=== PATIENT | male | born 1955 | race Caucasian/White ===

== ENCOUNTER 2016-09-25 17:37 | Emergency (ER) | payer BC ==
[2016-09-25 18:12] VITALS: BP 147/84
[2016-09-25] MEDS ORDERED: Acetaminophen TAB* 325 MG PO ONE (18:57)
[2016-09-25] MEDS ORDERED: DOXYcycline CAP(*) 100 MG PO ONE ×2 (19:03→19:06)
--- NOTE | 2016-09-25 19:04 | UC ---
Skin Complaint HPI - HPI Summary HPI Summary: removed a tick from his left lower leg yesterday unsure how long in was attached for, has chills body aches, headache and nausea beginning today - History of Current Complaint Chief Complaint: UCBiteInjury Time Seen by Provider: 09/25/16 18:56 Stated Complaint: TICK BITE Hx Obtained From: Patient Onset/Duration: Sudden Onset, Lasting Days - 1, Still Present Skin Exposure Onset/Duration: Days Ago - 1 Timing: Constant Onset Severity: Mild Current Severity: Moderate Pain Intensity: 6 Pain Scale Used: 0-10 Numeric Location: Diffuse - body aches, Discrete - tick bite on left lower leg Aggravating: Nothing Alleviating: Nothing Associated Signs & Symptoms: Positive: Negative Related History: Insect Bite/Sting - Allergy/Home Medications Allergies/Adverse Reactions: Allergies Allergy/AdvReac Type Severity Reaction Status Date / Time Bee Venom Allergy Anaphylatic Verified 09/25/16 18:08 Shock Home Medications: Home Medications Atorvastatin* [Lipitor 20 MG*] 20 mg PO 1700 09/25/16 [History Confirmed ] Dipyridamole/Aspirin 25/200* [Aggrenox 25/200*] 1 cap.er PO BID 09/25/16 [ History Confirmed 09/25/16] Levothyroxine TAB* [Synthroid 150 MCG TAB*] 200 mcg PO DAILY 09/25/16 [History Confirmed 09/25/16] Review of Systems Constitutional: Chills, Fatigue Skin: Negative Eyes: Negative ENT: Negative Respiratory: Negative Cardiovascular: Negative Gastrointestinal: Negative Genitourinary: Negative Motor: Negative Neurovascular: Negative Musculoskeletal: Arthralgia, Myalgia Neurological: Negative Psychological: Anxious All Other Systems Reviewed And Are Negative: Yes PMH/Surg Hx/FS Hx/Imm Hx Previously Healthy: No - lyme Endocrine History Of: Reports: Thyroid Disease Cardiovascular History Of: Reports: Cardiac Disorders - heart cath 2016 Neurological History Of: Reports: CVA - Surgical History Surgical History: Yes Surgery Procedure, Year, and Place: right shoulder sx 2016 - Family History Known Family History: Positive: None Family History: no cardio vascular isssues reported in family lineage - Social History Occupation: Retired - staff weapons officer Lives: Alone Alcohol Use: Occasionally Substance Use Type: None Smoking Status (MU): Heavy Every Day Tobacco Smoker Type: Cigarettes Amount Used/How Often: 1/2ppd Physical Exam Triage Information Reviewed: Yes Appearance: Well-Appearing, No Pain Distress, Well-Nourished Vital Signs: Initial Vital Signs Temp 98.5 F 09/25/16 18:00 Pulse 86 09/25/16 18:00 Resp 16 09/25/16 18:00 BP 147/84 09/25/16 18:00 Pulse Ox 97 09/25/16 18:00 Vital Signs Reviewed: Yes Eye Exam: Normal Eyes: Positive: Conjunctiva Clear ENT Exam: Normal ENT: Positive: Normal ENT inspection, Hearing grossly normal, TMs normal, Other : - viral ulcerations on soft palate. Negative: Nasal congestion, Nasal drainage, Tonsillar swelling, Tonsillar exudate, Trismus, Muffled/hoarse voice Dental Exam: Normal Neck exam: Normal Neck: Positive: Supple, Nontender, No Lymphadenopathy Respiratory Exam: Normal Respiratory: Positive: Chest non-tender, Lungs clear, Normal breath sounds, No respiratory distress, No accessory muscle use Cardiovascular Exam: Normal Cardiovascular: Positive: RRR, No Murmur, Pulses Normal, Brisk Capillary Refill Musculoskeletal Exam: Normal Musculoskeletal: Positive: Strength Intact, ROM Intact, No Edema Neurological Exam: Normal Neurological: Positive: Alert, Muscle Tone Normal Psychological Exam: Normal Skin Exam: Other Skin: Positive: Other - small redness at tick site Course/Dx - Course Course Of Treatment: Dox times one dose now--labs, follow with pcp as planned this week, magic mouth wash should lesions in mouth become painful - Differential Diagnoses - Skin Complaint Differential Diagnoses: Cellulitis, Contact Dermatitis, Tick Born Illness, Viral Exanthem - Diagnoses Provider Diagnoses: Viral Stomatitis, Tick Exposure with Lyme PEP Discharge - Discharge Plan Condition: Stable Disposition: HOME Prescriptions: Magic Mouth Was-LUKE/MAAL/LIDO* 5 ml SWISH SPIT QID #240 ml Patient Education Materials: Tick Bite (ED), DASH Eating Plan (ED), Hypertension (ED), Gingivostomatitis (ED) Referrals: Hardik Cartagena NP [Primary Care Provider] - 09/26/16
[2016-09-26 10:46] LABS: Hematocrit 43 % (42-52); Mean Corpuscular HGB Conc 33 g/dl (31-36); Mean Corpuscular Hemoglobin 31 pg (27-31); Mean Corpuscular Volume 95 fL (80-94); Mean Platelet Volume 9 um3 (7.4-10.4); Red Blood Count 4.51 10^6/ul (4.0-5.4); Red Cell Distribution Width 13 % (10.5-15); White Blood Count 12.8 10^3/ul (3.5-10.8)
== END 2016-09-25 19:24 | disposition home or self-care (01) ==
LOC: UCCORT 17:37
DX: S80.862A Insect bite (nonvenomous), left lower leg, initial encounter (principal); W57.XXXA Bitten or stung by nonvenomous insect and other nonvenomous arthropods, initial encounter; K12.1 Other forms of stomatitis; F17.210 Nicotine dependence, cigarettes, uncomplicated
CPT/HCPCS: 36415; 85025; 86618; 99212; A9270-GY; G0463

== ENCOUNTER 2019-02-13 08:56 | Emergency (ER) | payer MEDICARE, BC ==
[2019-02-13 09:42] VITALS: BP 120/62
--- NOTE | 2019-02-13 10:26 | ED ---
Lower Extremity - HPI Summary HPI Summary: 64 yr old with the complaint of pain in the left 1st MP area foot. Onset over a week ago. He jumped off his boat and landed on the left foot. The pain began the following day. He has been taking indocin 25 mg TID from his gout script, but not better. No fever, chills or redness. No other complaints. The patient always gets his gout flare ups in the left great toe MP joint area. - History of Current Complaint Chief Complaint: UCLowerExtremity Stated Complaint: LEFT FOOT COMPLAINT Time Seen by Provider: 02/13/19 09:47 Pain Intensity: 8 - Allergies/Home Medications Allergies/Adverse Reactions: Allergies Allergy/AdvReac Type Severity Reaction Status Date / Time bee venom protein (honey bee) Allergy Anaphylatic Verified 02/13/19 09:24 Shock Home Medications: Home Medications Amlodipine Besylate [Norvasc] 5 mg PO DAILY 02/13/19 [History Confirmed 02/13/19 ] Aspirin [Aspir-Low] 81 mg PO DAILY 02/13/19 [History Confirmed 02/13/19] Famotidine TAB* [Pepcid 20 MG TAB*] 20 mg PO BID 02/13/19 [History Confirmed ] Ibuprofen TAB* [Motrin TAB* 600 MG] 600 mg PO Q6H PRN 02/13/19 [History Confirmed 02/13/19] Indomethacin 25 mg PO Q6H PRN 02/13/19 [History Confirmed 02/13/19] Losartan/Hydrochlorothiazide [Losartan Potassium/Hydroc 100-25 mg] 1 tab PO DAILY 02/13/19 [History Confirmed 02/13/19] PMH/Surg Hx/FS Hx/Imm Hx Endocrine/Hematology History: Reports: Hx Thyroid Disease Denies: Hx Diabetes Cardiovascular History: Reports: Hx Hypertension - ON MEDS Denies: Hx Pacemaker/ICD History: Denies: Hx Renal Disease Sensory History: Denies: Hx Hearing Aid Psychiatric History: Denies: Hx Panic Disorder - Surgical History Surgery Procedure, Year, and Place: RIGHT SHOULDER 2015. APPENDECTOMY; cholecystectomy 11/2018. TONSILLECTOMY. LEFT KNEE PATELLAR TENDON RECONSTRUCTION. HEART CATH (BALLOONING - NO STENTS) Infectious Disease History: No Infectious Disease History: Reports: History Other Infectious Disease - lyme disease Denies: Traveled Outside the [place] in Last 30 Days - Family History Known Family History: Positive: None Family History: no cardio vascular isssues reported in family lineage - Social History Occupation: Employed Full-time Alcohol Use: Occasionally Substance Use Type: Reports: Excessive Caffeine Smoking Status (MU): Heavy Every Day Tobacco Smoker Type: Cigarettes Amount Used/How Often: 1ppd Review of Systems Constitutional: Negative Positive: Other - left foot pain at 1st MP area All Other Systems Reviewed And Are Negative: Yes Physical Exam Triage Information Reviewed: Yes Vital Signs On Initial Exam: Initial Vitals Temp Pulse Resp BP Pulse Ox 98.1 F 60 18 120/62 98 02/13/19 09:36 02/13/19 09:36 02/13/19 09:36 02/13/19 09:36 02/13/19 09:36 Vital Signs Reviewed: Yes Appearance: Positive: Well-Appearing, No Pain Distress Skin: Positive: Warm Head/Face: Positive: Normal Head/Face Inspection Eyes: Positive: EOMI, DESTINI ENT: Positive: Normal ENT inspection Neck: Positive: Nontender Respiratory/Lung Sounds: Positive: Clear to Auscultation, Breath Sounds Present Cardiovascular: Positive: RRR. Negative: Murmur Abdomen Description: Positive: Nontender. Negative: Distended Musculoskeletal: Positive: Strength/ROM Intact, Other - left foot 1st MP joint mild tender, no STS, no effusion. NO redness. Neurological: Positive: Sensory/Motor Intact, Alert, Oriented to Person Place, Time, CN Intact II-III, Speech Normal Psychiatric: Positive: Normal Diagnostics - Vital Signs Vital Signs Temp Pulse Resp BP Pulse Ox 02/13/19 09:36 98.1 F 60 18 120/62 98 - Laboratory Lab Statement: Any lab studies that have been ordered have been reviewed, and results considered in the medical decision making process. - Radiology left foot Radiology Interpretation Completed By: Radiologist - nad Lower Extremity Course/Dx - Course Course Of Treatment: 64 yr old with partially treated gout flare up. He will increased the indomethacin to 50 tid for two days. - Diagnoses Provider Diagnoses: Gout Discharge ED - Sign-Out/Discharge Documenting (check all that apply): Patient Departure All imaging exams completed and their final reports reviewed: Yes - Discharge Plan Condition: Good Disposition: HOME Patient Education Materials: Gout (ED) Referrals: Hardik Cartagena NP [Primary Care Provider] - 2 Days Additional Instructions: Increase dose of indomethacin to 50 mg three times a day for the next two days. - Billing Disposition and Condition Condition: GOOD Disposition: Home
== END 2019-02-13 10:47 | disposition home or self-care (01) ==
LOC: UCCORT 08:56
DX: M10.072 Idiopathic gout, left ankle and foot (principal); I10 Essential (primary) hypertension; Z79.82 Long term (current) use of aspirin; Z91.030 Bee allergy status; F17.210 Nicotine dependence, cigarettes, uncomplicated
CPT/HCPCS: 99211; G0463

== ENCOUNTER 2019-04-05 20:50 | Emergency (ER) | payer MEDICARE, BC ==
--- OUTSIDE RECORDS SUMMARY | 2019-04-05 20:59 | XMS REPORT | Continuity of Care Document ---
:1955 External Reference #:[id number] Author Name Philip Cohen M.D. (transmitted by agent of provider Jarod Barrios) Address [address] [facility] [place] [address] Care Team Providers Name Role Phone Hardik Cartagena NP - Family Care Team Information Gang Boss [phone] Problems Description No Information Available Social History Type Date Description Comments Sex Unknown Tobacco Use Start: Unknown Patient is a current had quit for 9 years, smoker, smokes some days started smoking again recently Smoking Status Reviewed: 03/05/19 Patient is a current had quit for 9 years, smoker, smokes some days started smoking again recently Allergies, Adverse Reactions, Alerts Active Allergies Reaction Severity Comments Date NKDA 01/07/2014 Bee Sting 01/07/2014 Medications Active Medications SIG Qnty Indications Ordering Provider Date Meloxicam 1 by mouth every 45tabs M19.072 Philip Cohen, 03/05/2019 7.5mg Tablets day M.DKelly Lipitor one tab by mouth 90tabs Bertram Pinzon 01/07/2014 20mg Tablets every night at [facility] bedtime Levothyroxine Sodium 1 by mouth every 30tabs Unknown day 112mcg Tablets Aspirin 81 1 by mouth every Unknown 81mg Tablets day DR Immunizations Description No Information Available Vital Signs Date Vital Result Comment 03/05/2019 10:54am Height 70 inches 5'10" Weight 215.00 lb Heart Rate 77 /min BP Systolic Sitting 128 mmHg BP Diastolic Sitting 88 mmHg Respiratory Rate 18 /min Pain Level 8 O2 % BldC Oximetry 95 % BMI (Body Mass Index) 30.8 kg/m2 01/07/2014 2:57pm Height 69 inches 5'9" Weight 196.00 lb Heart Rate 61 /min BP Systolic Sitting 120 mmHg BP Diastolic Sitting 72 mmHg Respiratory Rate 14 /min Body Temperature 98.4 F BMI (Body Mass Index) 28.9 kg/m2 Results Description No Information Available Procedures Description No Information Available Medical Devices Description No Information Available Encounters Description No Information Available Assessments Date Code Description Provider 03/05/2019 M19.072 Primary osteoarthritis, left ankle and foot Philip Cohen M.D. Plan of Treatment 03/05/2019 - Philip Cohen M.D.M19.072 Primary osteoarthritis, left ankle and footNew Medication:Meloxicam 7.5 mg - 1 by mouth every dayNew Xrays:Foot Left 3 + VWS, Ordered: 03/05/19MRI Lower Extremity Left W/O, Ordered: 03/05/19Follow up :after testing is completed Functional Status Description No Information Available Mental Status Description No Information Available Referrals Description No Information Available
--- OUTSIDE RECORDS SUMMARY | 2019-04-05 20:59 | XMS REPORT | Continuity of Care Document ---
:1955 External Reference #:[id number] Author Name Philip Cohen M.D. (transmitted by agent of provider Jarod Barrios) Address [address] [facility] [address] Care Team Providers Name Role Phone Hardik Cartagena NP - Family Care Team Information Animal Caretaker Supervisor [phone] Problems Description No Information Available Social History Type Date Description Comments Sex Unknown Tobacco Use Start: Unknown Heavy tobacco smoker (more than 10 cigarettes/day) Smoking Status Reviewed: 03/19/19 Heavy tobacco smoker (more than 10 cigarettes/day) Allergies, Adverse Reactions, Alerts Active Allergies Reaction Severity Comments Date NKDA 01/07/2014 Bee Sting 01/07/2014 Medications Active Medications SIG Qnty Indications Ordering Provider Date Lipitor one tab by mouth 90tabs Bertram Pinzon 01/07/2014 20mg Tablets every night at [facility] M.D. bedtime Levothyroxine Sodium 1 by mouth every 30tabs Unknown day 112mcg Tablets Aspirin 81 1 by mouth every Unknown 81mg Tablets day DR Amlodipine Besylate 1 by mouth every Unknown 5mg day Tablets Losartan 1 by mouth every Unknown Potassium/Hydrochlorot day hiazide 100-25mg Tablets History Medications Meloxicam 1 by mouth 45tabs M19.072 Philip Cohen, 03/05/2019 - 7.5mg every day M.D. 03/18/2019 Tablets Immunizations Description No Information Available Vital Signs Date Vital Result Comment 03/19/2019 2:27pm Height 70 inches 5'10" Heart Rate 73 /min BP Systolic Sitting 116 mmHg BP Diastolic Sitting 78 mmHg Respiratory Rate 16 /min Pain Level 6 O2 % BldC Oximetry 97 % 03/05/2019 10:54am Height 70 inches 5'10" Weight 215.00 lb Heart Rate 77 /min BP Systolic Sitting 128 mmHg BP Diastolic Sitting 88 mmHg Respiratory Rate 18 /min Pain Level 8 O2 % BldC Oximetry 95 % BMI (Body Mass Index) 30.8 kg/m2 Results Description No Information Available Procedures Date Code Description Status 03/05/2019 97567 Rad Exam; Foot Comp Completed Medical Devices Description No Information Available Encounters Type Date Location Provider Dx Diagnosis Office Visit 03/05/2019 [facility] Philip Cohen, M19.072 Primary 11:00a at [place] [facility] osteoarthritis, left ankle and foot Assessments Date Code Description Provider 03/19/2019 M20.22 Hallux rigidus, left foot Philip Cohen M.D. 03/19/2019 M20.21 Hallux rigidus, right foot Philip Cohen M.D. 03/05/2019 M19.072 Primary osteoarthritis, left ankle and foot Philip Cohen M.D. Plan of Treatment 03/19/2019 - Philip Coehn M.D.M20.22 Hallux rigidus, left footNew Therapy: Rehab ReferralFollow up:As [id number] Hallux rigidus, right foot Functional Status Description No Information Available Mental Status Description No Information Available Referrals Description No Information Available
[2019-04-05] MEDS ORDERED: Ibuprofen TAB* 600 MG PO ONE (21:40)
[2019-04-05] MEDS ORDERED: Lidocaine 1% MPF ** 5 ML VIAL INJ ONE (21:40)
[2019-04-05 21:48] VITALS: BP 94/53
--- NOTE | 2019-04-05 22:10 | UC ---
Hand/Wrist HPI - HPI Summary HPI Summary: A chief 64-year-old male comes in with a chief complaint of left middle finger injury. Just prior to arrival he was getting out of the shower he slipped and injured his left middle finger. It is deformed. Angulated at the PIP there is no skin break. Denies any other injuries. - History Of Current Complaint Chief Complaint: UCUpperExtremity Stated Complaint: INJURY LEFT MIDDLE FINGER Time Seen by Provider: 04/05/19 21:51 Pain Intensity: 10 - Allergies/Home Medications Allergies/Adverse Reactions: Allergies Allergy/AdvReac Type Severity Reaction Status Date / Time bee venom protein (honey bee) Allergy Anaphylatic Verified 04/05/19 21:40 Shock PMH/Surg Hx/FS Hx/Imm Hx Previously Healthy: Yes Endocrine History: Hypothyroidism, Dyslipidemia Cardiovascular History: Hypertension - Surgical History Surgical History: Yes Surgery Procedure, Year, and Place: RIGHT SHOULDER 2015. APPENDECTOMY; cholecystectomy 11/2018. TONSILLECTOMY. LEFT KNEE PATELLAR TENDON RECONSTRUCTION. HEART CATH (BALLOONING - NO STENTS) - Family History Known Family History: Positive: None Family History: no cardio vascular isssues reported in family lineage - Social History Alcohol Use: Occasionally Substance Use Type: None Smoking Status (MU): Heavy Every Day Tobacco Smoker Type: Cigarettes Amount Used/How Often: 1ppd Review of Systems All Other Systems Reviewed And Are Negative: Yes Constitutional: Positive: Negative Skin: Positive: Bruising - Left middle finger PIP. Eyes: Positive: Negative ENT: Positive: Negative Respiratory: Positive: Negative Cardiovascular: Positive: Negative Gastrointestinal: Positive: Negative Motor: Positive: Decreased ROM - Left middle finger PIP Neurovascular: Positive: Negative Musculoskeletal: Positive: Other: - See history of present illness Neurological: Positive: Negative Psychological: Positive: Negative Is Patient Immunocompromised?: No Physical Exam Triage Information Reviewed: Yes Appearance: Well-Appearing, Well-Nourished, Pain Distress - Mild Vital Signs: Initial Vital Signs Temp 97.6 F 04/05/19 21:41 Pulse 68 04/05/19 21:41 Resp 16 04/05/19 21:41 BP 94/53 04/05/19 21:41 Pulse Ox 100 04/05/19 21:41 Vital Signs Reviewed: Yes Eye Exam: Normal Eyes: Positive: Conjunctiva Clear Neck: Positive: Supple Respiratory: Positive: No respiratory distress Musculoskeletal: Positive: Other: - Left middle finger is deformed at the PIP and angulated. Normal capillary refill normal sensation. Neurological: Positive: Alert Psychological: Positive: Normal Response To Family, Age Appropriate Behavior Skin: Positive: Other - Ecchymosis left middle finger PIP Procedures - Joint Reduction Left Joint Reduction Site: other - left middle finger PIP Specify Other Joint Reduced: left middle finger PIP Conscious Sedation: No - I performed a 1% lidocaine digital block after prepping with Betadine. Reduction Attempts: 1 Pre-Procedure NV Exam: Yes - normal Post Joint Reduction Film: joint reduced Hand/Wrist Course/Dx - Course Course Of Treatment: I discussed the x-rays with the patient and his family. There is a dislocation at the PIP. I did a digital block with 1% lidocaine after prepping with Betadine. I then reduced the left middle finger PIP. Patient has normal capillary refill normal sensation after the procedure he does have pain with attempted range of motion of the left middle finger PIP. I discussed the x-rays of the post reduction hand and I do not see any fracture. Final radiologist reading is pending. Patient was splinted by nursing and patient and her last contact after splinting. Plan will be to follow-up with the orthopedic hand specialist. - Differential Dx/Diagnosis Provider Diagnosis: Dislocation of left middle finger Discharge ED - Sign-Out/Discharge Documenting (check all that apply): Patient Departure All imaging exams completed and their final reports reviewed: No - Discharge Plan Condition: Stable Disposition: HOME Patient Education Materials: Finger Dislocation (ED) Referrals: Hardik Cartagena NP [Primary Care Provider] - Philip Martinez MD [Medical Doctor] - Additional Instructions: FOLLOW UP WITH THE ORTHOPEDICS HAND SPECIALIST. GET REEVALUATED SOONER IF NOT IMPROVING OR WORSE OR ANY QUESTIONS OR CONCERNS. - Billing Disposition and Condition Condition: STABLE Disposition: Home
--- NOTE | 2019-04-06 08:05 | UC ---
- Progress Note Progress Note: Cigar Packer And Picker: Joe Cordero, ([id number]) Bog Cutter: GIFTY (NUANCE) Report Date: 04/06/2019 07:58:00 Report Status: Final Start of Report Content Patient Name: LARS DUBON Medical Record#: [id number] Ordering Physician: Oniel Madsen MD Acct.#: [id number] : 12/1954 Age: 64 Sex: M Location: [facility] Exam Date: 04/05/192053 ADM Status: [facility] ER Order Information: FINGER LEFT MIDDLE Accession Number: [id number] CPT: 29775 INDICATION: Finger injury. TECHNIQUE: 3 views of the left third finger were obtained. FINDINGS: There is dorsolateral displacement of the left third phalanx of the PIP. The remaining joint spaces are grossly maintained. No fractures identified. IMPRESSION: Dislocated left third PIP. R0 Preliminary Imaging Read R0 <Electronically signed by Joe Cordero MD in OV> 04/06/19753 Dictated By: Joe Cordero MD Dictated Date/Time: 04/06/19751 Transcribed Date/ Time: 04/06/19751 Copy to: CC:Hardik Cartagena DIE DESIGNER APPRENTICE; Oniel Madsen MD Imaging - [facility] Imaging [facility] Urgent [facility] [address] [address] ph [phone]) ph [phone]) ph [phone]) End of Report Content ========= Cigar Packer And Picker: Joe Cordero, ([id number]) Bog Cutter: GIFTY (NUANCE) Report Date: 04/06/2019 08:02:00 Report Status: Final Start of Report Content Patient Name: LARS DUBON Medical Record#: [id number] Ordering Physician: Oniel Madsen MD Acct.#: [id number] : 12/1954 Age: 64 Sex: M Location: [facility] Exam Date: 04/05/192202 ADM Status: [facility] ER Order Information: FINGER LEFT MIDDLE Accession Number: [id number] CPT: 44257 INDICATION: Finger injury. COMPARISON: Same day radiographs of the left third digit. TECHNIQUE: 3 views of the left third finger were obtained. FINDINGS: Near-anatomic alignment is maintained status post reduction of the left third PIP. No fractures identified. The joint spaces are grossly preserved. There are conventional periarticular erosive changes at the second MCP. IMPRESSION: 1. THE LEFT THIRD PIP IS REDUCED. NO FRACTURE IS IDENTIFIED. 2. PERIARTICULAR EROSIVE CHANGES ABOUT THE SECOND MCP (CAN BE SEEN IN THE SETTING OF RHEUMATOID ARTHRITIS) R2 Preliminary Imaging Read R2 <Electronically signed by Joe Cordero MD in OV> 04/06/19757 Dictated By: Joe Cordero MD Dictated Date/ Time: 04/06/19753 Transcribed Date/Time: 04/06/19753 Copy to: CC:Hardik Cartagena DIE DESIGNER APPRENTICE; Oniel Madsen MD Imaging - [facility] Imaging - [facility] Imaging - [facility] [id number] [place] [address] ph ) ph [phone]) ph ([phone]) End of Report Content Finger reduced, no fracture. Was instructed to f/u with Orthopedist. Course/Dx - Diagnoses Provider Diagnoses: Dislocation of left middle finger Discharge ED - Sign-Out/Discharge Documenting (check all that apply): Post-Discharge Follow Up All imaging exams completed and their final reports reviewed: Yes - Discharge Plan Condition: Stable Disposition: HOME Patient Education Materials: Finger Dislocation (ED) Referrals: Hardik Cartagena NP [Primary Care Provider] - Philip Martinez MD [Medical Doctor] - Additional Instructions: FOLLOW UP WITH THE ORTHOPEDICS HAND SPECIALIST. GET REEVALUATED SOONER IF NOT IMPROVING OR WORSE OR ANY QUESTIONS OR CONCERNS. - Billing Disposition and Condition Condition: STABLE Disposition: Home
== END 2019-04-05 22:26 | disposition home or self-care (01) ==
LOC: UCCORT 20:50
DX: S63.283A Dislocation of proximal interphalangeal joint of left middle finger, initial encounter (principal); I10 Essential (primary) hypertension; F17.210 Nicotine dependence, cigarettes, uncomplicated; Z91.030 Bee allergy status; W18.2XXA Fall in (into) shower or empty bathtub, initial encounter; Y92.9 Unspecified place or not applicable
CPT/HCPCS: 73140; 99211; A9270-GY; G0463